=== PATIENT | male | born 1955 | race American Indian/Alaskan Native ===

== ENCOUNTER 2017-01-02 09:51 | Emergency (ER) | payer MEDICARE ==
[2017-01-02] MEDS ORDERED: MORPHINE IV ONE ×3 (11:10→18:19)
[2017-01-02] MEDS ORDERED: NACL 0.9% 1000 ML 1,000 ML IV ONE (11:10)
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
[2017-01-02] MEDS ORDERED: BOOSTRIX IM ONE (11:11)
[2017-01-02 12:08] LABS: Basophils % (Auto) 0.4 % (0.0-1.8); Eosinophils % (Auto) 0.7 % (0.0-4.3); Hematocrit 35.2 % (35.5-45.6); Hemoglobin 11.3 gm/dl (11.8-15.2); Mean Corpuscular HGB Conc 32 % (32-34); Mean Corpuscular Hemoglobin 32 pg (28-32); Mean Corpuscular Volume 101 fl (84-94); Platelet Count 108 K/mm3 (140-440); White Blood Count 7.7 K/mm3 (4.5-11.0)
[2017-01-02 12:11] LABS: Red Cell Distribution Width 20.2 % (13.2-15.2)
[2017-01-02 12:13] LABS: Alanine Aminotransferase 9 units/L (7-56); Albumin 3.8 g/dL (3.9-5); Alkaline Phosphatase 59 units/L (35-129); Anion Gap 24 mmol/L; BUN/Creatinine Ratio 4.44; Blood Urea Nitrogen 36 mg/dL (9-20); Calcium 8.2 mg/dL (8.4-10.2); Carbon Dioxide 21 mmol/L (22-30); Chloride 96.4 mmol/L (98-107); Creatine Kinase 151 units/L (55-170); Glucose 89 mg/dL (75-100); Potassium 4.7 mmol/L (3.6-5.0); Sodium 137 mmol/L (137-145); Total Protein 7.8 g/dL (6.3-8.2)
[2017-01-02 12:24] LABS: Bilirubin,Direct < 0.2 mg/dL (0-0.2); Bilirubin,Indirect 0.2 mg/dL
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
[2017-01-02] MEDS ORDERED: XYLOCAINE 2%/EPI 1:100,000 INFILTRATI ONE (13:12)
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
--- NOTE | 2017-01-02 14:47 | Cat Scan Report ---
FINAL REPORT EXAM: CT ABDOMEN PELVIS WO CON HISTORY: abdominal pain left side TECHNIQUE: CT abdomen and pelvis without contrast PRIORS: None. FINDINGS: Which evaluation for solid organ injury is limited due to lack of intravenous contrast no acute abnormality identified in the lung bases. No focal abnormality identified within the liver parenchyma. The spleen demonstrates normal size and attenuation. No pancreatic abnormalities seen. Left kidney is atrophic Demonstrated is aortoiliac endovascular stent. Mid aorta is 2.5 centimeters in transverse diameter. The adrenal glands are unremarkable. Abdominal aorta is normal in caliber. No pathologically enlarged lymph nodes are identified. No signs of free fluid or free air No evidence of small bowel dilatation. The appendix is identified and is normal in size no adjacent inflammatory change seen. Urinary bladder is unremarkable. There are no acute skeletal findings identified. IMPRESSION: They really act vascular stent Marked left renal atrophy No acute traumatic abnormalities are identified on noncontrast CT.
[2017-01-02 16:55] VITALS: BP 216/101
[2017-01-02] MEDS ORDERED: APRESOLINE ONE (18:07)
[2017-01-02] MEDS ORDERED: NORCO 5/325 PO ONE (18:07)
[2017-01-02] MEDS ORDERED: APRESOLINE IV ONE (18:10)
== END 2017-01-02 20:58 | disposition designated cancer center or children's hospital (05) ==
LOC: ED 09:51
DX: S02.40BA Malar fracture, left side, initial encounter for closed fracture (principal); S01.81XA Laceration without foreign body of other part of head, initial encounter; I10 Essential (primary) hypertension; F17.200 Nicotine dependence, unspecified, uncomplicated; Y04.0XXA Assault by unarmed brawl or fight, initial encounter; Y93.89 Activity, other specified; Y92.89 Other specified places as the place of occurrence of the external cause; Y99.8 Other external cause status; Z88.0 Allergy status to penicillin; G31.9 Degenerative disease of nervous system, unspecified; M54.2 Cervicalgia; S02.2XXA Fracture of nasal bones, initial encounter for closed fracture; R07.89 Other chest pain; S22.32XA Fracture of one rib, left side, initial encounter for closed fracture; R10.9 Unspecified abdominal pain; E86.0 Dehydration
CPT/HCPCS: 12011; 36415; 70450; 70486; 71101; 71250; 72125; 74176; 80048; 80074; 82550; 84484; 85025; 93005; 93010; 96361; 96374; 96375; 96376; 99285; J0360; J2270; J7030